=== PATIENT | female | born 1975 | race Caucasian/White ===

== ENCOUNTER 2022-12-24 09:37 | Outpatient (CLI) | payer BC, SELFPAY ==
--- NOTE | ~2022-12-24 | MM_ITS ---
EXAMINATION: MM screening yes[facility] BI w mauro HISTORY: Screening TECHNIQUE: Craniocaudal and mediolateral oblique 3-D tomosynthesis images were obtained and synthetic 2-D images were generated. CAD analysis was submitted and interpreted. COMPARISON: Comparison to multiple prior studies sequentially, with oldest reviewed study dated 11/2018. BREAST PARENCHYMAL COMPOSITION: The breasts are heterogeneously dense, which may obscure small masses FINDINGS: There are new nodular asymmetries in the subareolar location of the right breast on MLO vie w. There are new nodular asymmetries primarily involving the upper aspect of the left breast on MLO v iew. IMPRESSION: 1. New bilateral nodular asymmetries primarily seen on the MLO views. 2. Additional mammographic views and possible breast ultrasound are recommended. BI-RADS Category 0: Incomplete: Needs additional imaging evaluation. Reviewed, dictated and finalized at location A. IMPRESSION: 1. New bilateral nodular asymmetries primarily seen on the MLO views. 2. Additional mammographic views and possible breast ultrasound are recommended . BI-RADS Category 0: Incomplete: Needs additional imaging evaluation.
== END 2022-12-24 09:38 | disposition home or self-care (01) ==
LOC: ANHIMG 09:41
PROVIDERS: PCP Obstetrics & Gynecology; Visit Provider Obstetrics & Gynecology
DX: Z12.31 Encounter for screening mammogram for malignant neoplasm of breast (principal); R92.8 Other abnormal and inconclusive findings on diagnostic imaging of breast
CPT/HCPCS: 77063; 77067

== ENCOUNTER 2023-01-15 11:48 | Outpatient (CLI) | payer BC, SELFPAY ==
--- NOTE | ~2023-01-15 | MMUS_ITS ---
EXAMINATION: MM diagnostic yesica BI w mauro, US breast RT limited HISTORY: Bilateral breast asymmetries on screening mammogram TECHNIQUE: Additional 3-D tomosynthesis images of the breasts were performed and synthetic 2-D images were generated. CAD analysis was submitted and interpreted. High resolution limited right breast ult rasound was performed. COMPARISON: 12/24/2022, 01/10/2019, 12/29/2018 FINDINGS: MAMMOGRAPHIC FINDINGS: There is a return to baseline fibroglandular appearance with spot compression of the left breast in t he area questioned on screening mammogram. With spot compression, a mass in the middle third of the s lightly outer right breast has an appearance similar to prior examinations. ULTRASOUND: There is no suspicious solid or cystic mass in the vicinity of the mammographic finding in question i n the right breast. IMPRESSION: 1. No mammographic or sonographic evidence of malignancy. 2. Recommend routine screening mammography in one year. BI-RADS Category 2: Benign finding(s). Reviewed, dictated and finalized at location A. IMPRESSION: 1. No mammographic or sonographic evidence of malignancy. 2. Recommend routine screening mammography in one year. BI-RADS Category 2: Benign finding(s).
== END 2023-01-15 11:49 | disposition home or self-care (01) ==
PROVIDERS: PCP Obstetrics & Gynecology; Visit Provider Obstetrics & Gynecology
DX: R92.8 Other abnormal and inconclusive findings on diagnostic imaging of breast (principal)
CPT/HCPCS: 76642; 77062; 77066; G0279

== ENCOUNTER 2023-07-25 10:12 | Emergency (ER) | payer OTHER, BC, SELFPAY ==
[2023-07-25 10:22] VITALS: BP 109/82; PULSE 80; RESP 18; TEMP 37; O2SAT 99
--- NOTE | 2023-07-25 10:40 | ED.URI ---
HPI - URI/Sore Throat General Chief Complaint: Wound/Laceration Stated Complaint: left thumb injury Time Seen by Provider: 07/25/23 10:29 Source: patient Mode of arrival: ambulatory Limitations: no limitations History of Present Illness HPI Narrative: Patient presents today complaining of a laceration to her left thumb that was sustained last night at 8:00 p.m.. She was washing a wine glass when it snapped at the stem and the broken area cut her. Denies numbness or tingling. She is not up-to-date on her tetanus vaccine. She cleaned it with Betadine last night and dressed it. Related Data Home Medications Medication Instructions Recorded Confirmed No Home Medications 07/25/23 07/25/23 Allergies Allergy/AdvReac Type Severity Reaction Status Date / Time No Known Allergies Allergy Verified 07/25/23 10:16 Review of Systems Review of Systems: CONSTITUTIONAL: Denies body aches, fever, chills, or sweats. EYES: Denies visual changes, redness, or discharge. ENT: Denies rhinorrhea, congestion, sore throat, or otalgia. CARDIOVASCULAR: Denies chest pain, palpitations, or edema. RESPIRATORY: Denies cough or dyspnea. GASTROINTESTINAL: Denies abdominal pain, nausea, vomiting, or diarrhea. GENITOURINARY: Denies dysuria or hematuria. SKIN: + left thumb injury MUSCULOSKELETAL: Denies back pain, joint pain, or myalgia. NEUROLOGIC: Denies headache, numbness, tingling, or weakness. PSYCH: Denies depression or anxiety. PMFSH Comments At time of signature, I have reviewed and agree with nursing past medical, surgical, social and family history unless otherwise noted. Please see nursing chart for further information. There is no relevant family history pertinent to the presenting complaint Exam Narrative: GENERAL: Well-appearing, well-nourished, and in no acute distress. HEAD: Normocephalic, atraumatic. EYES: EOMI. No redness or drainage. Conjunctivae normal. ENT: Mucous membranes pink and moist. NECK: Normal AROM. CHEST: No respiratory distress. EXTREMITIES: Left thumb: 1 x 1 cm superficial skin avulsion at the proximal phalanx, palmar aspect. No active bleeding. Full range of motion. SKIN: Warm, dry, no rash. Capillary refill normal. Normal skin turgor. NEURO: No focal deficits. Alert and oriented x3. Gait steady. PSYCH: Normal affect. No signs of depression or anxiety. Course Course Level of Care: Express Care Visit Vital Signs Vital signs: Vital Signs Temperature 98.6 F 07/25/23 10:22 Pulse Rate 80 07/25/23 10:22 Respiratory Rate 18 07/25/23 10:22 Blood Pressure 109/82 07/25/23 10:22 Pulse Oximetry 99 07/25/23 10:22 Oxygen Delivery Room Air 07/25/23 10:22 Temperature 98.6 F 07/25/23 10:22 Pulse Rate 80 07/25/23 10:22 Respiratory Rate 18 07/25/23 10:22 Blood Pressure 109/82 07/25/23 10:22 Pulse Oximetry 99 07/25/23 10:22 Oxygen Delivery Room Air 07/25/23 10:22 Reviewed MDM - URI/Sore Throat MDM Narrative Medical decision making narrative: Skin avulsion was cleansed with wound cleanser and dressed with a Band-Aid. There was no area to be repaired. Discussed home treatment. Tetanus shot updated. Anticipatory guidance given. Differential Diagnosis Differential diagnosis: Likely other (Laceration, abrasion, skin avulsion) Critical Care Time Critical Care Time Critical Care Time: No Discharge Plan Discharge Clinical Impression: Avulsion of skin Patient Disposition: Home, Self-Care Condition: Stable Instructions: Skin Avulsion (ED) Additional Instructions: Your cut has been cleaned and dressed. Wash daily with soap and water. Keep covered until scabbed over. Do not washed with alcohol or peroxide. Monitor for any signs of infection such as redness, swelling, increased pain or drainage comments your doctor if you note any. Your tetanus shot has been updated today. Take Tylenol or ibuprofen for pain. Your blood pressure
[2023-07-25] MEDS: TETANUS,DIPHTHERIA,AC PERTUSSIS ADULT (0.5 ML) BOOSTRIX IM (10:46)
== END 2023-07-25 10:52 | disposition home or self-care (01) ==
PROVIDERS: Emergency Provider Nurse Practitioner; PCP Obstetrics & Gynecology
DX: S61.002A Unspecified open wound of left thumb without damage to nail, initial encounter (principal); W25.XXXA Contact with sharp glass, initial encounter; Y93.G1 Activity, food preparation and clean up; Z23 Encounter for immunization
CPT/HCPCS: 90471; 90715; 99212; G0463